=== PATIENT | female | born 1975 | race Caucasian/White ===

== ENCOUNTER 2017-05-30 00:58 | Emergency (ER) | payer OTHER ==
[2017-05-30 01:36] LABS: #Basophils 0.1 thou/uL (0.0-0.2); #Eosinphils 0.2 thou/uL (0.0-0.7); #Lymphocytes 2.5 thou/uL (1.20-3.40); #Monocytes 0.8 thou/uL (0.11-0.59); #Neutrophils 3.7 thou/uL (1.40-6.50); %Basophils 0.9 % (0.0-1.0); %Eosinophils 2.8 % (0.0-10.0); %Lymphocytes 34.4 % (21.0-51.0); %Monocytes 11.5 % (0.0-10.0); Hematocrit 44.4 % (36.0-47.0); Mean Platelet Volume 6.6 fL (7.4-10.4); Red Blood Cell (RBC) Count 4.94 mill/uL (4.20-5.40); White Blood Cell (WBC) Count 7.3 thou/uL (4.8-10.8)
[2017-05-30 01:50] LABS: PTT 30.4 SEC (22.9-36.1); Prothrombin Time 12.9 SEC (12.0-14.7)
[2017-05-30 01:54] LABS: ALT (SGPT) 27 U/L (8-55); AST (SGOT) 34 U/L (5-34); Alkaline Phosphatase 44 U/L (40-150); Anion Gap 13 mmol/L (10-20); BUN (Urea Nitrogen) 12 mg/dL (7.0-18.7); Bilirubin, Total 0.5 mg/dL (0.2-1.2); CK (CPK) 226 U/L (29-168); Calc. Creatinine Clearance 0 mL/min (70-130); Calcium 9.2 mg/dL (7.8-10.44); Carbon Dioxide 23 mmol/L (22-29); Chloride 106 mmol/L (98-107); Estimated GFR-MDRD 82; Globulin 2.9 g/dL (2.4-3.5); Lipase 42 U/L (8-78); Protein, Total 6.8 g/dL (6.0-8.3)
[2017-05-30 01:56] LABS: Troponin I Less than 0.010 ng/mL (< 0.028)
--- NOTE | 2017-05-30 13:37 | CT ---
PRELIMINARY REPORT/[facility]/EMERGENCY AFTER HOURS PROCEDURE: EXAM: CT Angiography Chest With Intravenous Contrast CLINICAL HISTORY: sudden onset of sharp back pain that woke her from her sleep TECHNIQUE: Axial computed tomographic angiography images of the chest with intravenous contrast using pulmonary embolism protocol. CONTRAST: 66 mL of isovue 370 administered intravenously. COMPARISON: No relevant prior studies available. FINDINGS: Pulmonary arteries: No acute findings. No pulmonary embolism. Aorta: No acute findings. No thoracic aortic aneurysm. Lungs: 6 mm indeterminate round noncalcified nodule, medial left lower lobe, paraspinal location. Mild reticular densities lingula, likely reflecting atelectasis vs fibrosis. No focal consolidation. Pleural space: No acute findings. No significant effusion. No pneumothorax. Heart: No acute findings. No cardiomegaly. No significant pericardial effusion. No evidence of RV dys function. Bones/joints: No acute fracture. No dislocation. Soft tissues: No acute findings. Lymph nodes: No acute findings. No enlarged lymph nodes. IMPRESSION: No pulmonary embolism. No aneurysm. Mild reticular densities lingula, likely reflecting atelectasis vs fibrosis. 6 mm indeterminate round noncalcified nodule, left lower lobe. For low-risk patients recommend follow-up chest CT at 6-12 months. If unchanged consider an additiona l follow-up CT at 18-24 months. For high-risk patients (smoking history or other known risk factors) initial follow-up chest CT at 6-12 months and if unchanged, 18-24 months. Thank you for allowing us to participate in the care of your patient. Dictated and Authenticated by: Dee France MD 05/30/2017 2:37 AM Central Time ([place] & [place]) FINAL REPORT EMERGENCY AFTER HOURS CT ANGIOGRAM THORAX WITH IV CONTRAST AND 3D RECONSTRUCTIONS: Date: 05/30/17 HISTORY: Sudden onset of sharp back pain that awakened patient from sleep. Patient states pain is exacerbated by inspiration and deep breathing. COMPARISON: None available. IMPRESSION: 1. No CT evidence of pulmonary embolus. 2. Thoracic aorta is normal in caliber without evidence of an aortic dissection. 3. Pleural based nodular density medial left lower lobe which measures 6-7 mm. This could be related to an area of focal pleural thickening, but follow-up CT thorax in 6-12 months is recommended. 4. Atelectasis in the region of the lingula. Findings are in agreement with the preliminary report by Harini. POS: LEEANNA
[2017-05-30] MEDS ORDERED: ISOVUE-370 76%-LOCM 1 ML ONE (16:44)
== END 2017-05-30 03:08 | disposition home or self-care (01) ==
LOC: ERS 00:58
DX: F41.1 Generalized anxiety disorder (principal); R91.1 Solitary pulmonary nodule; J45.909 Unspecified asthma, uncomplicated; Z79.899 Other long term (current) drug therapy
CPT/HCPCS: 71275; 80053; 82553; 83690; 84484; 84703; 85025; 85610; 85730; 93005; 96360

== ENCOUNTER 2018-07-15 13:14 | Outpatient (CLI) | payer OTHER | END 2018-07-15 13:15 | disposition home or self-care (01) | LOC: BICMAMMO 13:14 | PROVIDERS: ATTEND Nurse Practitioner Family | DX: N64.4 Mastodynia (principal); Z80.3 Family history of malignant neoplasm of breast | CPT/HCPCS: 77066; G0279 ==

== ENCOUNTER 2018-09-09 08:54 | Outpatient (CLI) | payer OTHER ==
--- NOTE | 2018-09-09 09:46 | ULT ---
ULTRASOUND PELVIS TRANSABDOMINAL: HISTORY: Left lower quadrant pain. COMPARISON: None. FINDINGS: The uterus measures 8.2 x 4.5 x 5.5 cm. Endometrial thickness is 7 mm. The right ovary is 3 x 2.8 x 2.2 cm. The left ovary is 2.9 x 2.2 x 1.7 cm. No significant free fluid in the pelvis. Transvaginal approach was not performed. Adequate flow to both ovaries. IMPRESSION: Normal exam. POS: LEEANNA
== END 2018-09-09 08:55 | disposition home or self-care (01) ==
LOC: ULT 08:54
PROVIDERS: ATTEND Nurse Practitioner Family
DX: R10.32 Left lower quadrant pain (principal)
CPT/HCPCS: 76856; 93976

== ENCOUNTER 2019-01-12 11:01 | Outpatient (CLI) | payer OTHER ==
--- NOTE | 2019-01-12 11:33 | RAD ---
EXAM: Chest PA and lateral: HISTORY: Cough. COMPARISON: None FINDINGS: Heart: Normal cardiac silhouette Aorta: Unremarkable Pulmonary vessels: Normal Costophrenic angles: Costophrenic angles are clear. Lungs: Right lower lobe infiltrate. Pneumothorax: No pneumothorax Osseous structures: No osseous abnormalities IMPRESSION: Right lower lobe infiltrate. Continued surveillance to ensure resolution.
== END 2019-01-12 11:02 | disposition home or self-care (01) ==
LOC: SCSRAD 11:01
PROVIDERS: ATTEND Nurse Practitioner Family
DX: J45.41 Moderate persistent asthma with (acute) exacerbation (principal); R91.8 Other nonspecific abnormal finding of lung field
CPT/HCPCS: 71046

== ENCOUNTER 2019-04-10 06:50 | Outpatient (CLI) | payer OTHER ==
[2019-04-10 12:46] LABS: BHCG - Serum Negative (NEGATIVE); Pregs Control Background? CLEAR/WHITE (CLR/WHITE); Pregs Control Bar Appear? YES (CONTROL BAR)
== END 2019-04-10 06:51 | disposition home or self-care (01) ==
LOC: LABBT 06:50
PROVIDERS: ATTEND Student in an Organized Health Care Education/Training Program
DX: Z01.812 Encounter for preprocedural laboratory examination (principal); N92.0 Excessive and frequent menstruation with regular cycle
CPT/HCPCS: 84703

== ENCOUNTER 2019-04-13 07:45 | Day surgery (SDC) | payer OTHER ==
[2019-04-10 11:32] VITALS: BMI 26.5
[2019-04-10 12:35] LABS: Hemoglobin 15.8 g/dL (12.0-16.0); Mean Corpuscular HGB CONC 34.2 g/dL (32.0-36.0); Mean Corpuscular Hemoglobin 30.9 pg (27.0-31.0); Mean Corpuscular Volume 90.5 fL (78.0-98.0); Mean Platelet Volume 6.3 fL (7.4-10.4); Platelet Count 269 thou/uL (130-400); White Blood Cell (WBC) Count 7.5 thou/uL (4.8-10.8)
[2019-04-13] MEDS ORDERED: Gabapentin 300 MG CAP ONE (08:25)
[2019-04-13] MEDS ORDERED: CeleCOXIB 100 MG CAP ONE (08:25)
[2019-04-13] MEDS ORDERED: Famotidine/PF 20 mg/2ml Vial ONE (08:25)
[2019-04-13] MEDS ORDERED: Scopolamine 1.5 mg/72 hour Patch ONE (09:25)
[2019-04-13] MEDS ORDERED: Midazolam HCl 2 mg/2 ml Vial ONE ×2 (09:25→10:01)
[2019-04-13 09:34] LABS: BHCG - Serum Negative (NEGATIVE); Pregs Control Background? CLEAR/WHITE (CLR/WHITE); Pregs Control Bar Appear? YES (CONTROL BAR)
[2019-04-13] MEDS ORDERED: Lidocaine 2% Jelly 5 ML TUBE ONE (10:01)
[2019-04-13] MEDS ORDERED: Fentanyl 100 MCG/2 ML VIAL ONE ×2 (10:01→12:56)
[2019-04-13] MEDS ORDERED: HYDROmorphone 0.5 MG/0.5 ML SYRINGE ONE (10:01)
[2019-04-13] MEDS ORDERED: Bupivacaine HCl 0.5%/Epinephrine 1:200,000/PF 30 ml Vial ONE (10:02)
[2019-04-13] MEDS ORDERED: Ondansetron HCl/PF 4 MG/2 ML Vial IVP PRN (12:02)
[2019-04-13] MEDS ORDERED: Promethazine HCl 25 MG/ML VIAL SLOW IVP PRN (12:02)
[2019-04-13] MEDS ORDERED: Promethazine HCl 25 MG/ML VIAL IM PRN ×2 (12:02→12:16)
[2019-04-13] MEDS ORDERED: Simethicone Chewable 80 MG TAB PO PRN (12:16)
[2019-04-13] MEDS ORDERED: Morphine 4 MG/ML VIAL SLOW IVP PRN (12:16)
[2019-04-13] MEDS ORDERED: HYDROcodone/Acetaminophen 5/325 mg Tablet PO PRN ×2 (12:16)
[2019-04-13] MEDS ORDERED: Bisacodyl 10 MG SUPP PR PRN (12:16)
[2019-04-13] MEDS ORDERED: Ondansetron PF 4 MG/2 ML Vial IVP PRN (12:16)
[2019-04-13] MEDS ORDERED: Zolpidem Tartrate 5 MG TAB PO PRN (12:16)
[2019-04-13] MEDS ORDERED: diphenhydrAMINE 25 MG CAP PO PRN (12:16)
[2019-04-13] MEDS ORDERED: PROVENTIL INHALER 6.7 G (200 INHALATIONS) INH PRN (12:18)
[2019-04-13] MEDS ORDERED: Lidocaine 1% PF 5 ML VIAL ONE (12:47)
[2019-04-13] MEDS ORDERED: PROPOFOL 200 MG/20 ML VIAL ONE (12:47)
[2019-04-13] MEDS ORDERED: Rocuronium Bromide 10 MG/ML (10ML VIAL) ONE (12:47)
[2019-04-13] MEDS ORDERED: Dexamethasone 20 MG/5 ML VIAL ONE (12:47)
[2019-04-13] MEDS ORDERED: Ondansetron PF 4 MG/2 ML Vial ONE (12:47)
[2019-04-13] MEDS ORDERED: ePHEDrine 50 MG/ML VIAL ONE (12:47)
[2019-04-13] MEDS ORDERED: Glycopyrrolate 0.2 MG/ML 5 ML SYRINGE ONE (12:47)
[2019-04-13] MEDS: Mometasone/Formoterol 120 PUFF INHALER INH SCH (19:03)
[2019-04-13] MEDS: Sodium Chloride 0.9% 1,000 ML IV SCH ×2 (19:33→20:54)
[2019-04-13] MEDS: Ketorolac Tromethamine 30 MG/ML VIAL IVP SCH (20:46)
[2019-04-14] MEDS: Ketorolac Tromethamine 30 MG/ML VIAL IVP SCH (00:19)
[2019-04-14] MEDS: Sodium Chloride 0.9% 1,000 ML IV SCH (04:17)
[2019-04-14] MEDS ORDERED: Ibuprofen 800 MG TAB PO SCH (06:00)
[2019-04-14 06:37] LABS: Mean Corpuscular HGB CONC 34.3 g/dL (32.0-36.0); Mean Corpuscular Hemoglobin 30.7 pg (27.0-31.0); Mean Corpuscular Volume 89.5 fL (78.0-98.0); Mean Platelet Volume 6.5 fL (7.4-10.4); Platelet Count 246 thou/uL (130-400); RBC Distribution Width 11.8 % (11.5-14.5); Red Blood Cell (RBC) Count 4.57 mill/uL (4.20-5.40); White Blood Cell (WBC) Count 15.3 thou/uL (4.8-10.8)
[2019-04-14] MEDS: Mometasone/Formoterol 120 PUFF INHALER INH SCH (07:27)
[2019-04-14 08:18] VITALS: BP 110/61; TEMP 98.6
--- NOTE | 2019-04-15 10:43 | OP ---
DATE OF PROCEDURE: 04/13/2019 PREOPERATIVE DIAGNOSIS: Abnormal uterine bleeding. POSTOPERATIVE DIAGNOSIS: Abnormal uterine bleeding. PROCEDURE PERFORMED: Robotic-assisted total laparoscopic hysterectomy with bilateral salpingectomy. ANESTHESIA: General endotracheal. CAFETERIA OR LUNCHROOM CHECKER SURGEON: Tatiana Perez PA-C ESTIMATED BLOOD LOSS: 50 mL. INTRAVENOUS FLUIDS: 1500 mL crystalloid. URINE OUTPUT: 240 mL clear urine. COMPLICATIONS: None. DRAINS: Pablo catheter. PATHOLOGY: Uterus, cervix, bilateral fallopian tubes. FINDINGS: On exam under anesthesia, a mobile 9-week size uterus. Cervix is normal-appearing. The vagina is normal. The uterus was normal as well as bilateral fallopian tubes and ovaries. There were small follicular cyst on the right ovary that had clear fluid on aspiration. DESCRIPTION OF PROCEDURE: The patient was taken to the operating room, where general anesthesia was obtained without difficulty. The patient was prepped and draped in a sterile fashion in a dorsal lithotomy position. A Pablo catheter was placed in the bladder. A speculum was placed in the vagina. The anterior lip of the cervix was grasped with single-tooth tenaculum. The uterus then sounded to 9 cm, and the TAIWO manipulator was assembled with an 8 cm tip and a 4 cm colpotomizer ring. The TAIWO manipulator was inserted into the uterine fundus and colpotomizer ring was advanced to fit snugly around the cervix. The instruments were removed out of the vagina. Legs were placed in low lithotomy. Attention was turned to the abdomen. 0.5% Marcaine with epinephrine was infiltrated into the umbilicus and a 12 mm skin incision was made. The Veress needle was passed into the abdomen noting an opening pressure of 4 mmHg, and pneumoperitoneum was obtained without difficulty. The 12 mm trocar was then advanced into the abdomen and confirmed placement with robotic camera. Steep Trendelenburg was obtained. The right and left lower quadrant 8 mm robotic trocars were placed under direct visualization after infiltrating with 0.5% Marcaine with epinephrine and making skin incision. A right upper quadrant 11 mm surgery assistant port was also placed under direct visualization after infiltrating with anesthetic and making skin incision. The robot was then docked. The right robotic arm contained monopolar scissors. Left robotic arm contained a fenestrated bipolar. The surgeon console then took control. The right fallopian tube was grasped and elevated. The mesosalpinx was sequentially cauterized and incised with the fenestrated and scissors respectively until the medial portion of the fallopian tube was met. Then, it was clamped across, cauterized, transected, and then removed out of the abdomen. The utero-ovarian was cauterized multiple times and transected, and incision was taken down to the round ligament with the scissors. The round ligament was cauterized with the fenestrated and incised with the scissors and the medial portion of the posterior leaf of the broad ligament was dropped down, making an incision with the scissors. The anterior leaf of the broad ligament was dropped down to the level of the bladder flap with the scissors, and the retroperitoneum was then dissected off the uterine pedicles with the scissors as well as blunt dissection with the fenestrated and pushing and spreading. The bladder flap was then created by tenting up with the fenestrated and incised on the vesicouterine peritoneum with the scissors. The adventitial fibers of the bladder flap were then dissected down incising with the scissors while tenting up on the peritoneum with the fenestrated. Attention was turned to the left side, where the left fallopian tube was grasped and elevated. The mesosalpinx was sequentially clamped, cauterized, and transected from lateral to medial until the medial portion was met, and then, the fallopian tube was then clamped across, cauterized, transected, removed out of the abdomen. The utero-ovarian was cauterized multiple times and incised with the scissors. The round ligament was cauterized and incised in the medial portion. The anterior leaf of the broad ligament was dropped down to the level of the contralateral side incision. The posterior leaves of the broad ligament were also dropped down after sharply anteverting the uterus down to the level of the uterosacral. The ureters were identified bilaterally and the retroperitoneum at this time and to ensure no inadvertent injury. They were under direct visualization during the case. The uterine pedicles were skeletonized at this time as well, mostly bluntly pushing and spreading with the fenestrated and then cauterizing multiple supporting vessels to the uterine pedicle. After adequate skeletonization, the pubocervical fascia was scored with the scissors and bluntly dissected down below the level of the colpotomizer ring with the back end of the scissors. The uterine vessels were cauterized right just above the level of the colpotomizer ring multiple times bilaterally and incised. Hemostasis was achieved with the fenestrated. The colpotomy was then performed circumferentially around the colpotomizer ring, and the uterus was then placed into the vagina. The vaginal cuff was irrigated and hemostasis was achieved with the fenestrated. The scissors were traded out with a needle racing driver and the vaginal cuff was closed with a 2-0 Stratafix suture in a running fashion incorporating vaginal mucosa and posterior peritoneum in each bite. This was run back for an additional layer with the same suture. The needle was then cut and removed out of the abdomen. During the closure, the suture did break, and therefore, an additional STRATAFIX suture was used to complete the closure and both needles were removed out of the abdomen. Following closure, the vaginal cuff was irrigated copiously and suctioned as well as the additional pedicles. Hemostasis was noted to be excellent. Low pressure check was performed and hemostasis was noted. The bladder was also backfilled and no inadvertent injury to the bladder was identified. All instruments were removed out of the abdomen. Pneumoperitoneum was released, and the robot was undocked. The fascia of the umbilical port was closed with a 0 Vicryl in a wqqash-oh-exnvi fashion. The skin was closed with a 4-0 Monocryl in a subcuticular fashion. Dermabond was applied. The vaginal cuff was checked and noted to be hemostatic. All instruments removed out of the vagina. The patient tolerated the procedure well. Sponge, lap, and needle counts were correct x2. The patient was taken to recovery room in stable condition. The patient received Ancef 2 g prior to the procedure. Job ID: [id number]
== END 2019-04-14 11:20 | disposition home or self-care (01) ==
LOC: SDC 07:45 → 3SE 13:34 → SDC 04-14 11:20
PROVIDERS: ATTEND Student in an Organized Health Care Education/Training Program
PROC: 0UT74ZZ Resection of Bilateral Fallopian Tubes, Percutaneous Endoscopic Approach (ICD-10-PCS; principal; 2019-04-14)
PROC: 0UT94ZZ Resection of Uterus, Percutaneous Endoscopic Approach (ICD-10-PCS; principal; 2019-04-14)
DX: N93.9 Abnormal uterine and vaginal bleeding, unspecified (principal); N92.0 Excessive and frequent menstruation with regular cycle; N72 Inflammatory disease of cervix uteri; N83.01 Follicular cyst of right ovary; Z91.018 Allergy to other foods
CPT/HCPCS: 36415; 84703; 85027; 86850; 86900; 86901; 88307; J0131; J0670; J0690; J1100; J1170; J1885; J2001; J2250; J2405; J2704; J3010; J3490; S0028

== ENCOUNTER 2019-04-22 17:46 | Observation (INO) | payer OTHER ==
[~2019-04-22 17:46] MED LIST: Iopamidol 370 76% 100 ML VIAL ONE
[2019-04-22] MEDS ORDERED: Ondansetron PF 4 MG/2 ML Vial ONE (18:36)
[2019-04-22] MEDS ORDERED: Morphine 4 MG/ML VIAL ONE ×2 (18:36→21:55)
[2019-04-22 20:04] LABS: #Eosinphils 0.2 thou/uL (0.0-0.7); #Lymphocytes 0.4 thou/uL (1.20-3.40); #Monocytes 0.5 thou/uL (0.11-0.59); #Neutrophils 7.2 thou/uL (1.40-6.50); %Basophils 0.1 % (0.0-1.0); %Eosinophils 2.4 % (0.0-10.0); %Lymphocytes 4.6 % (21.0-51.0); %Monocytes 5.6 % (0.0-10.0); %Neutrophils 87.2 % (42.0-75.0); Hemoglobin 15.7 g/dL (12.0-16.0); Mean Corpuscular HGB CONC 35.2 g/dL (32.0-36.0); Mean Corpuscular Hemoglobin 30.9 pg (27.0-31.0); Mean Corpuscular Volume 87.8 fL (78.0-98.0); Mean Platelet Volume 6.1 fL (7.4-10.4); Platelet Count 212 thou/uL (130-400); RBC Distribution Width 11.5 % (11.5-14.5); Red Blood Cell (RBC) Count 5.07 mill/uL (4.20-5.40); White Blood Cell (WBC) Count 8.2 thou/uL (4.8-10.8)
[2019-04-22 20:08] LABS: Bilirubin Negative (Negative); Blood, Urine Negative (Negative); Clarity Clear (Clear); Glucose, Urine (Dipstick) Normal (Negative); Leukocyte Negative Leu/uL (Negative); Nitrite Negative (Negative); Protein, Urine (Dipstick) Negative (Neg-Trace); Urobilinogen Normal mg/dL (Less than 2)
[2019-04-22 20:20] LABS: ALT (SGPT) 17 U/L (8-55); AST (SGOT) 19 U/L (5-34); Albumin 4.1 g/dL (3.5-5.0); Alkaline Phosphatase 56 U/L (40-110); Anion Gap 14 mmol/L (10-20); BUN (Urea Nitrogen) 12 mg/dL (7.0-18.7); Bilirubin, Total 0.9 mg/dL (0.2-1.2); Calc. Creatinine Clearance 0 mL/min (70-130); Carbon Dioxide 25 mmol/L (22-29); Chloride 104 mmol/L (98-107); Estimated GFR-MDRD 81; Globulin 2.7 g/dL (2.4-3.5); Glucose 115 mg/dL (70-105); Protein, Total 6.8 g/dL (6.0-8.3); Sodium 139 mmol/L (136-145)
--- NOTE | 2019-04-22 20:38 | CT ---
EXAM: Abdomen and pelvic CT scan with contrast: HISTORY: Epigastric pain. Recent surgery. COMPARISON: None FINDINGS: Minimal volume loss is seen at the lung bases Liver: Unremarkable. Gallbladder: There is moderate distention of the gallbladder Pancreas: No focal pancreatic lesion. Spleen: Unremarkable. Adrenal glands: Unremarkable. Kidneys: No renal calculus or acute obstruction. Small parenchymal hypodensities of each kidney ar e too small to definitively characterize Bowel: Limited evaluation of bowel without enteric contrast. There is mild generalized hyperdensity o f bowel wall, which could be on the basis of hyperemia related to enteritis. There is mild fat stranding seen intra-abdominally as well as mild ascites. Urinary Bladder: The urinary bladder is unremarkable. Adenopathy: No adenopathy within the abdomen or pelvis. Subcutaneous air density of the ventral body wall is present. This is adjacent a presumed port site g iven patient's history of recent surgery. No disseminated free air. Osseous structures: No acute osseous abnormalities. IMPRESSION: Findings which may relate to enteritis, as discussed above. There is associated mild ascites. Correla te clinically. Moderate distention of gallbladder. Additional details are described above. Transcribed Date/Time: 04/22/2019 8:51 PM
[2019-04-22] MEDS ORDERED: Piperacillin/Tazobactam 4.5 GM VIAL ONE (22:03)
--- NOTE | 2019-04-22 22:47 | ULT ---
Gallbladder ultrasound: Multiple grayscale images of right upper quadrant obtained according to protocol. INDICATION: Pain FINDINGS: Liver: Normal Gallbladder: Moderate distention Gallbladder wall: Normal. Mcallister's Sign: Negative Common bile duct is mildly dilated, 6 mm Ascites: None. IMPRESSION: Moderate distention of the gallbladder, without evidence of acute cholecystitis, or shadowing choleli thiasis. Mild biliary ductal dilatation. Correlate with biliary laboratory values. Additional details as discussed above.
[2019-04-22] MEDS ORDERED: Ondansetron PF 4 MG/2 ML Vial IVP PRN (23:21)
[2019-04-23] MEDS ORDERED: Morphine 4 MG/ML VIAL ONE (00:23)
--- NOTE | 2019-04-23 00:45 | PDOC.EVN ---
Event Note - Event Note Event Note: [id number] HP
[2019-04-23 01:25] VITALS: BMI 26.5
[2019-04-23] MEDS: Sodium Chloride 0.9% 1,000 ML IV SCH ×3 (01:43→20:23)
[2019-04-23] MEDS ORDERED: Ketorolac Tromethamine 30 MG/ML VIAL IVP SCH (01:45)
[2019-04-23] MEDS: Piperacillin/Tazobactam 3.375 GM in Sodium Chloride 0.9% 100 ML IVPB SCH ×4 (04:31→20:09)
[2019-04-23 06:50] LABS: #Eosinphils 0.4 thou/uL (0.0-0.7); #Lymphocytes 0.5 thou/uL (1.20-3.40); #Monocytes 0.8 thou/uL (0.11-0.59); #Neutrophils 6.5 thou/uL (1.40-6.50); %Basophils 0.3 % (0.0-1.0); %Eosinophils 5.2 % (0.0-10.0); %Lymphocytes 5.6 % (21.0-51.0); %Monocytes 9.4 % (0.0-10.0); %Neutrophils 79.5 % (42.0-75.0); Hemoglobin 14.5 g/dL (12.0-16.0); Mean Corpuscular HGB CONC 33.6 g/dL (32.0-36.0); Mean Corpuscular Hemoglobin 30.1 pg (27.0-31.0); Mean Corpuscular Volume 89.4 fL (78.0-98.0); Mean Platelet Volume 6.1 fL (7.4-10.4); Platelet Count 172 thou/uL (130-400); RBC Distribution Width 11.6 % (11.5-14.5); Red Blood Cell (RBC) Count 4.83 mill/uL (4.20-5.40); White Blood Cell (WBC) Count 8.1 thou/uL (4.8-10.8)
--- NOTE | 2019-04-23 07:16 | HP ---
CHIEF COMPLAINT: Abdominal pain. HISTORY OF PRESENT ILLNESS: Ms. Jj is a 43-year-old female, with past medical history of bronchial asthma, presents to the emergency room with abdominal pain, nausea, vomiting, and diarrhea that started earlier this morning. The patient had a hysterectomy a week ago. The patient also reports subjective fever. Workup in the emergency room including CT of the abdomen showed findings related to enteritis. Right upper quadrant ultrasound showed distended gallbladder without evidence of acute cholecystitis or shadowing cholelithiasis. Electrolytes are unremarkable; bilirubin, ALT, AST, alkaline phosphatase are normal. The patient is being admitted to the hospital for further management. The patient had a temperature of 100.5 in the ED. The patient was tachycardic with a heart rate of 117. The patient is being admitted to the hospital for further management. PAST MEDICAL HISTORY: Bronchial asthma. PAST SURGICAL HISTORY: Hysterectomy. FAMILY HISTORY: Reviewed and noncontributory. HOME MEDICATIONS: Please see home medication reconciliation form for updated medications. ALLERGIES: NO KNOWN ALLERGIES. REVIEW OF SYSTEMS: Review of 14 systems negative except what is mentioned in History of Present Illness. PHYSICAL EXAMINATION: GENERAL: The patient is awake, alert, in moderate distress. VITAL SIGNS: Blood pressure is 100/74, pulse is 115, respiratory rate is 23, temperature is 102.1 maximum. HEAD AND NECK: Normocephalic and atraumatic. NECK: Supple. No JVD. CHEST: Fair bilateral air entry. HEART: S1, S2. Regular. ABDOMEN: Soft with mid abdominal and epigastric tenderness. NEUROLOGIC: Awake, alert, oriented x3. PSYCH: Normal mood. EXTREMITIES: No clubbing, no cyanosis. LABORATORY DATA: As mentioned above in History of Present Illness. The right upper quadrant ultrasound as mentioned above in History of Present Illness. CT abdomen and pelvis as mentioned above in History of Present Illness. ASSESSMENT: 1. Sepsis. 2. Acute enteritis. 3. Normal right upper quadrant ultrasound with distended gallbladder and mild biliary duct dilatation with normal LFTs. 4. Asthma. PLAN: 1. Admit. 2. Septic workup done in the ED. 3. Continue with IV antibiotic. 4. IV fluids. 5. Keep n.p.o. for now. 6. Reassess in the a.m. 7. Reconcile home medications. 8. DVT prophylaxis, early ambulation. 9. Expected length of stay at least 1 midnight if the patient is stable, and able to tolerate p.o. Job ID: [id number]
[2019-04-23 07:24] LABS: ALT (SGPT) 14 U/L (8-55); AST (SGOT) 21 U/L (5-34); Albumin 3.1 g/dL (3.5-5.0); Alkaline Phosphatase 41 U/L (40-110); Anion Gap 12 mmol/L (10-20); BUN (Urea Nitrogen) 10 mg/dL (7.0-18.7); Bilirubin, Total 1.1 mg/dL (0.2-1.2); Calc. Creatinine Clearance 109 mL/min (70-130); Calcium 7.7 mg/dL (7.8-10.44); Carbon Dioxide 21 mmol/L (22-29); Chloride 104 mmol/L (98-107); Estimated GFR-MDRD 89; Globulin 2.3 g/dL (2.4-3.5); Glucose 107 mg/dL (70-105); Potassium 3.5 mmol/L (3.5-5.1); Protein, Total 5.4 g/dL (6.0-8.3); Sodium 133 mmol/L (136-145)
[2019-04-23] MEDS: Morphine 4 MG/ML VIAL SLOW IVP PRN ×2 (07:46→20:29)
[2019-04-23] MEDS: Famotidine/PF 20 mg/2ml Vial SLOW IVP SCH ×2 (07:46→20:09)
[2019-04-23] MEDS: Acetaminophen 325 MG TAB PO PRN ×3 (07:46→20:09)
[2019-04-23] MEDS ORDERED: PROVENTIL INHALER 6.7 G (200 INHALATIONS) INH PRN (08:26)
[2019-04-23] MEDS ORDERED: Non-Formulary Item 1 EACH (Fluticasone/Salmeterol [Advair Diskus 250/50] 1 EACH) IH PRN (08:26)
--- NOTE | 2019-04-23 10:01 | PRG ---
DATE OF SERVICE: 04/23/2019 SUBJECTIVE: The patient is seen and examined at the bedside. She feels significantly better. She does not have any nausea or vomiting anymore. She still has some abdominal cramps, but they have improved. OBJECTIVE: VITAL SIGNS: Blood pressure is 109/74, temperature is 101.2, pulse 116, respiratory rate is 19, O2 saturation is 94% on room air. HEENT: Head is atraumatic and normocephalic. Eyes are PERRLA. Sclerae are nonicteric. Oral mucosa is somewhat dry. NECK: Supple. LUNGS: Clear. HEART: S1 and S2, normal. Tachycardic. No S3. No S4. ABDOMEN: Soft. Somewhat tender in the epigastric area. No guarding. No masses. EXTREMITIES: No clubbing, cyanosis, or edema. NEUROLOGIC: She is alert and oriented x4. There are no any motor or sensory deficits present. LABORATORY DATA: Showed white count of 8.1, hemoglobin 14.5, hematocrit 43.2, platelet count is 172,000. Sodium of 133, potassium 3.5, chloride 104, CO2 of 21, BUN 10, creatinine 0.72, glucose 107, total protein 5.4, albumin 3.1. Microbiology, two blood cultures are negative. IMPRESSION: 1. Fever, most likely related to acute enteritis. 2. Acute enteritis. 3. History of asthma. PLAN: To continue her IV antibiotics. Continue IV fluids. Start her on clear liquids. Start her on inhalations for her asthma, and use Tylenol p.r.n. for the fever. Job ID: [id number]
[2019-04-23] MEDS ORDERED: traMADol HCl 50 MG TAB PO PRN (15:59)
[2019-04-24] MEDS: Sodium Chloride 0.9% 1,000 ML IV SCH (02:31)
[2019-04-24] MEDS: Piperacillin/Tazobactam 3.375 GM in Sodium Chloride 0.9% 100 ML IVPB SCH (03:39)
[2019-04-24] MEDS ORDERED: Ibuprofen 200 MG TAB PO SCH ×2 (05:00→12:45)
[2019-04-24] MEDS ORDERED: Cipro 250 MG TAB PO SCH (09:00)
[2019-04-24] MEDS: Famotidine/PF 20 mg/2ml Vial SLOW IVP SCH ×2 (09:08→19:17)
[2019-04-24] MEDS ORDERED: Ciprofloxacin 500 MG TAB PO SCH (09:15)
[2019-04-24] MEDS: metroNIDAZOLE 500 MG in Premix Bag 1 BAG IVPB SCH ×3 (09:22→18:08)
--- NOTE | 2019-04-24 09:55 | PRG ---
DATE OF SERVICE: 04/24/2019 SUBJECTIVE: The patient is seen and examined at the bedside. She feels better. Her abdominal cramping has gone. She does not feel like eating yet, though she has watery diarrhea, 3 bowel movements, all of them watery. OBJECTIVE: VITAL SIGNS: Blood pressure is 128/77, pulse is 76, respiratory rate is 18, O2 saturation is 96% on room air. Her temperature is 97.1. HEENT: Her head is atraumatic and normocephalic. Eyes are PERRLA. Sclerae are nonicteric. Oral mucosa is moist. NECK: Supple. LUNGS: Clear. HEART: S1 and S2 normal. ABDOMEN: Soft and nontender. Bowel sounds are present. No organomegaly. EXTREMITIES: No clubbing, cyanosis, or edema. NEUROLOGIC: Intact. LABORATORY DATA: None today. IMPRESSION: Acute enteritis. We will check her stool. We will switch her from Zosyn to Cipro p.o. and Flagyl IV piggyback every 8 hours. We will discontinue her IV fluids. We will increase ambulation and check her stool for Escherichia coli and Campylobacter, and we will advance her diet as tolerated. Job ID: [id number]
[2019-04-24] MEDS ORDERED: Metoclopramide HCl 10 MG/2 ML VIAL IVP SCH (16:15)
[2019-04-24] MEDS ORDERED: Dihydroergotamine Mesylate 1 MG/ML AMP SLOW IVP SCH (16:15)
[2019-04-24] MEDS: Mometasone/Formoterol 120 PUFF INHALER INH SCH (18:24)
[2019-04-24] MEDS ORDERED: metroNIDAZOLE 500 MG TAB PO SCH (19:15)
[2019-04-24] MEDS ORDERED: SUMAtriptan Succinate 50 MG TAB PO SCH (19:15)
[2019-04-24] MEDS: Ciprofloxacin 500 MG TAB PO SCH (20:45)
[2019-04-24] MEDS ORDERED: SUMAtriptan Succinate 50 MG TAB PO PRN (21:00)
[2019-04-25] MEDS: Ciprofloxacin 500 MG TAB PO SCH (05:48)
[2019-04-25] MEDS: Mometasone/Formoterol 120 PUFF INHALER INH SCH (06:25)
[2019-04-25] MEDS ORDERED: metroNIDAZOLE 500 MG TAB PO SCH (09:00)
[2019-04-25] MEDS: Famotidine/PF 20 mg/2ml Vial SLOW IVP SCH (09:13)
[2019-04-25 10:50] VITALS: BP 119/83; TEMP 97.9
--- NOTE | 2019-04-25 14:42 | EKG ---
Test Reason : Blood Pressure : / mmHG Vent. Rate : 099 BPM Atrial Rate : 099 BPM P-R Int : 144 ms QRS Dur : 094 ms QT Int : 364 ms P-R-T Axes : 064 053 050 degrees QTc Int : 467 ms Normal sinus rhythm Possible Left atrial enlargement Borderline ECG Confirmed by VÍCTOR SLATER DO ([id number]), order editor ABDOULAYE ROMEO ([id number]) on 04/25/2019 2:41:38 PM Referred By: Confirmed By:VÍCTOR SLATER DO
--- NOTE | 2019-04-27 13:52 | DIS ---
DATE OF ADMISSION: 04/23/2019 DATE OF DISCHARGE: 04/25/2019 FINAL DIAGNOSIS: Acute enteritis, improved. HOSPITAL COURSE: The patient was a 43-year-old female with past medical history of bronchial asthma, who presented to the emergency room with abdominal pain, nausea, vomiting, and diarrhea x1 day. She had hysterectomy done a week ago. Workup in the emergency room showed normal white count, normal hemoglobin and hematocrit, normal platelet level, normal chemistry. Lipase 6, glucose 115. Urinalysis, 100 of ketones, otherwise within normal limits. Ultrasound of the abdomen was done which showed mildly biliary ductal dilatation and moderate distention of the gallbladder without evidence of acute cholecystitis or shadowing cholelithiasis. Also, CT of the abdomen and pelvis was done and it showed most likely enteritis with mild ascites. The patient's temperature went up to 101.2 two days ago, then it went down to normal range. Her abdominal pain resolved and she is able to tolerate food without any problems. She still has some watery diarrhea. Her white count is normal. Clinically she looks good. Her blood pressure is 114/76, pulse is 73, temperature is 98.1, respirations 17, O2 saturation is 98% on room air. She is seen and examined before she is discharged home. Her blood cultures came back negative. Urine culture did not show any significant growth. I think this is just contamination. Her stool culture came back negative for shiga toxins and gram negative pathogens. Campylobacter assay came back negative. Stool lactoferrin came back positive. So the patient is discharged home in good condition. She is going to stay on Cipro 500 mg twice a day for 7 days and metronidazole 500 mg 3 times a day for 7 days. She will continue her p.r.n. inhalers for her asthma. FOLLOWUP: She will contact her primary care physician for the followup in 1 week and she will discuss the possibility of using sumatriptan since she has tried this medicine for her headache during this hospitalization and it worked pretty good. She will use Tylenol for the pain. Job ID: [id number]
== END 2019-04-25 11:06 | disposition home or self-care (01) ==
LOC: ERS 17:46 → T4-B 04-23 01:13
PROVIDERS: ADMIT Internal Medicine; ATTEND Internal Medicine
DX: K52.9 Noninfective gastroenteritis and colitis, unspecified (principal); A41.9 Sepsis, unspecified organism; R18.8 Other ascites; J45.909 Unspecified asthma, uncomplicated; Z91.018 Allergy to other foods; Z90.710 Acquired absence of both cervix and uterus
CPT/HCPCS: 36415; 74177; 76705; 80053; 81003; 83605; 83630; 83690; 85025; 87040; 87045; 87046; 87086; 87427; 87449; 93005; 96361; 96365; 96366; 96367; 96375; 96376; G0378; J1110; J1885; J2270; J2405; J2543; J2765; J3490; S0028

== ENCOUNTER 2019-07-03 10:45 | Outpatient (CLI) | payer OTHER ==
--- NOTE | 2019-07-03 11:20 | ULT ---
US Gallbladder RUQ: 07/03/2019 12:00 AM CLINICAL HISTORY: Left lower quadrant abdominal pain. STUDY: Limited right upper quadrant ultrasound of abdomen. COMPARISON: None. FINDINGS: Liver: Size: Normal. Echogenicity: Normal. Contour: Smooth. Mass: None. Bile ducts: No intrahepatic or extrahepatic biliary dilatation. Common bile duct measures 7 mm. Gallbladder: Contracted with apparent gallbladder wall thickening secondary to its contracted state. No shadowing stones. Pancreas: Head, body, and tail appear normal. Right kidney: Mild hydronephrosis Right kidney measuring 11.5 cm in length. IMPRESSION: 1. Mild right hydronephrosis 2. Common bile duct is upper limits of normal in size.
== END 2019-07-03 10:46 | disposition home or self-care (01) ==
LOC: BICULT 10:45
PROVIDERS: ATTEND Internal Medicine Gastroenterology
DX: K62.5 Hemorrhage of anus and rectum (principal); R10.32 Left lower quadrant pain; R10.13 Epigastric pain; N13.30 Unspecified hydronephrosis; Z80.0 Family history of malignant neoplasm of digestive organs
CPT/HCPCS: 76705

== ENCOUNTER 2023-04-15 19:16 | Inpatient (IN) | payer OTHER ==
[~2023-04-15 19:16] MED LIST changes: -Iopamidol 370 76% 100 ML VIAL ONE; +Iopamidol-370 76% 500 ML MDV (1 ML CHARGE) ONE
[2023-04-15] MEDS ORDERED: Ondansetron PF 4 MG/2 ML Vial ONE (20:15)
[2023-04-15 20:39] LABS: Hematocrit 53.6 % (36.0-47.0); Hemoglobin 18.7 g/dL (12.0-16.0); Mean Corpuscular HGB CONC 34.9 g/dL (32.0-36.0); Mean Corpuscular Hemoglobin 30.4 pg (27.0-31.0); Mean Corpuscular Volume 87.2 fl (78.0-98.0); Mean Platelet Volume 8.8 fL (7.4-10.4); Platelet Count 317 10x3/uL (130-400); RBC Distribution Width 12.9 % (11.5-14.5); Red Blood Cell (RBC) Count 6.15 mill/uL (4.20-5.40); White Blood Cell (WBC) Count 27.1 10x3/uL (4.8-10.8)
[2023-04-15 20:48] LABS: Delete Auto Diff?? YES; Manual Diff?? YES
[2023-04-15 20:49] LABS: BHCG - Serum Negative (NEGATIVE); Pregs Control Background? CLEAR/WHITE (CLR/WHITE); Pregs Control Bar Appear? YES (CONTROL BAR)
[2023-04-15 21:11] LABS: ALT (SGPT) 30 U/L (8-55); AST (SGOT) 36 U/L (5-34); Albumin 5.6 g/dL (3.5-5.0); Alkaline Phosphatase 60 U/L (40-110); Anion Gap 23 mmol/L (10-20); BUN (Urea Nitrogen) 20 mg/dL (7.0-18.7); Calc. Creatinine Clearance 0 mL/min (70-130); Calcium 11.1 mg/dL (7.8-10.44); Carbon Dioxide 21 mmol/L (22-29); Chloride 101 mmol/L (98-107); Estimated GFR 36; Glucose 182 mg/dL (70-105); Lipase 21 U/L (8-78); Potassium 4.4 mmol/L (3.5-5.1); Protein, Total 9.6 g/dL (6.0-8.3); Sodium 141 mmol/L (136-145)
[2023-04-15 21:12] LABS: Band 18 % (5-11); CellaVision Operator ID lab.abc; Lymphocytes 1 % (21-51); Monocytes 4 % (0-10); Neutrophil 77 % (42-75); Platelet Adequacy Comment Platelets Normal; RBC Morphology Within Normal Limits; Total Cell Count 103; Toxic Granulation SLIGHT; Vacuoles SLIGHT
[2023-04-15] MEDS ORDERED: Ondansetron PF 4 MG/2 ML Vial IVP PRN (21:33)
[2023-04-15] MEDS ORDERED: Ondansetron ODT 4 MG TAB PO PRN (21:33)
[2023-04-15] MEDS ORDERED: Cefepime 2 GM VIAL ONE (22:00)
[2023-04-15 22:13] LABS: Magnesium 2.1 mg/dL (1.6-2.6)
[2023-04-15 22:39] LABS: Bacteria/HPF None Seen HPF (None Seen); Bilirubin Negative (Negative); Blood, Urine Negative (Negative); CAUTI Indications for Culture < 2yrs of age; Clarity Turbid (Clear); Glucose, Urine (Dipstick) Normal (Negative); Ketone, Urine Trace mg/dL (Negative); Leukocyte Negative Leu/uL (Negative); Nitrite Negative (Negative); Protein, Urine (Dipstick) 50 mg/dL (Neg-Trace); RBC/HPF 0-3 HPF (0-3); Specific Gravity, Urine 1.047 (1.002-1.036); Urobilinogen Normal mg/dL (Less than 2); WBC/HPF 0-3 HPF (0-3); pH, Urine 5.5 (5.0-9.0)
[2023-04-15 22:44] LABS: Urine Culture Reflex Yes Yes
[2023-04-15] MEDS ORDERED: traZODone HCl 50 MG TAB PO PRN (22:54)
[2023-04-15] MEDS ORDERED: metroNIDAZOLE 500 MG in Premix Bag 1 BAG IVPB SCH (23:15)
[2023-04-15 23:27] VITALS: BMI 27.0
[2023-04-16 00:16] LABS: Lactic Acid 4.3 mmol/L (0.5-2.2)
[2023-04-16] MEDS ORDERED: Lactated Ringer's 1,000 ML IV SCH (00:30)
[2023-04-16] MEDS ORDERED: Lactated Ringer's 500 ML IV SCH (00:30)
[2023-04-16] MEDS: Lactated Ringer's 1,000 ML IV SCH ×3 (01:59→20:13)
[2023-04-16] MEDS: metroNIDAZOLE 500 MG in Premix Bag 1 BAG IVPB SCH ×3 (05:17→22:27)
[2023-04-16] MEDS: Acetaminophen 325 MG TAB PO PRN ×2 (05:17→10:09)
[2023-04-16 06:39] LABS: #Basophils 0.1 thou/uL (0.0-0.2); #Monocytes 0.7 thou/uL (0.11-0.59); #Neutrophils 16.6 thou/uL (1.40-6.50); %Basophils 0.3 % (0.0-1.0); %Eosinophils 0.2 % (0.0-10.0); %Monocytes 3.9 % (0.0-10.0); %Neutrophils 93.1 % (42.0-75.0); Mean Corpuscular Hemoglobin 30.2 pg (27.0-31.0); Mean Corpuscular Volume 86.2 fl (78.0-98.0); Platelet Count 222 10x3/uL (130-400); RBC Distribution Width 12.9 % (11.5-14.5); Red Blood Cell (RBC) Count 4.77 mill/uL (4.20-5.40); White Blood Cell (WBC) Count 17.9 10x3/uL (4.8-10.8)
[2023-04-16 06:45] LABS: Hematocrit 41.1 % (36.0-47.0); Hemoglobin 14.4 g/dL (12.0-16.0)
[2023-04-16 07:46] LABS: Anion Gap 14 mmol/L (10-20); BUN (Urea Nitrogen) 16 mg/dL (7.0-18.7); Calc. Creatinine Clearance 92 mL/min (70-130); Calcium 8.5 mg/dL (7.8-10.44); Carbon Dioxide 22 mmol/L (22-29); Chloride 104 mmol/L (98-107); Estimated GFR 88; Glucose 115 mg/dL (70-105); Potassium 3.8 mmol/L (3.5-5.1); Sodium 136 mmol/L (136-145)
[2023-04-16] MEDS ORDERED: Cefepime 1 GM in Sodium Chloride 0.9% 100 ML IVPB SCH (09:00)
[2023-04-16] MEDS ORDERED: Ibuprofen 800 MG TAB PO SCH (11:15)
[2023-04-16 17:06] LABS: Campy jejuni + coli by PCR Negative (Negative); STEC Shiga Toxin 1+2 Negative (Negative); Salmonella spp. by PCR Negative (Negative); Shigella spp + EIEC by PCR Negative (Negative)
[2023-04-16] MEDS: Cefepime 2 GM in Sodium Chloride 0.9% 100 ML IVPB SCH (20:13)
[2023-04-16] MEDS ORDERED: Ketorolac Tromethamine 30 MG/ML VIAL IVP SCH (20:30)
[2023-04-17] MEDS: Lactated Ringer's 1,000 ML IV SCH ×2 (01:15→08:20)
[2023-04-17] MEDS: metroNIDAZOLE 500 MG in Premix Bag 1 BAG IVPB SCH (05:24)
[2023-04-17 06:31] LABS: #Eosinphils 0.3 thou/uL (0.0-0.7); #Monocytes 0.7 thou/uL (0.11-0.59); #Neutrophils 5.3 thou/uL (1.40-6.50); %Basophils 0.5 % (0.0-1.0); %Eosinophils 3.4 % (0.0-10.0); %Lymphocytes 14.6 % (21.0-51.0); %Monocytes 9.4 % (0.0-10.0); %Neutrophils 71.7 % (42.0-75.0); Hematocrit 38.8 % (36.0-47.0); Hemoglobin 13.3 g/dL (12.0-16.0); Mean Corpuscular HGB CONC 34.3 g/dL (32.0-36.0); Mean Corpuscular Hemoglobin 30.5 pg (27.0-31.0); Mean Platelet Volume 8.8 fL (7.4-10.4); Platelet Count 171 10x3/uL (130-400); Red Blood Cell (RBC) Count 4.36 mill/uL (4.20-5.40); White Blood Cell (WBC) Count 7.4 10x3/uL (4.8-10.8)
[2023-04-17 06:57] LABS: Anion Gap 7 mmol/L (10-20); BUN (Urea Nitrogen) 9 mg/dL (7.0-18.7); Calc. Creatinine Clearance 100 mL/min (70-130); Calcium 8.3 mg/dL (7.8-10.44); Carbon Dioxide 27 mmol/L (22-29); Chloride 109 mmol/L (98-107); Estimated GFR 96; Glucose 84 mg/dL (70-105); Potassium 3.6 mmol/L (3.5-5.1); Sodium 139 mmol/L (136-145)
[2023-04-17] MEDS: Cefepime 2 GM in Sodium Chloride 0.9% 100 ML IVPB SCH (08:19)
[2023-04-17] MEDS: Acetaminophen 325 MG TAB PO PRN (08:19)
[2023-04-17] MEDS ORDERED: Dicyclomine 10 MG CAP PO SCH (09:00)
[2023-04-17 11:24] VITALS: BP 125/83; TEMP 97.7
== END 2023-04-17 12:25 | disposition home or self-care (01) | DRG 872 ==
LOC: SJX 19:16 → T4-A 21:47 → OBSVTOIN 04-16 13:16
PROVIDERS: ADMIT Internal Medicine; ATTEND Internal Medicine
DX: A41.9 Sepsis, unspecified organism (principal); A09 Infectious gastroenteritis and colitis, unspecified; N17.9 Acute kidney failure, unspecified; E87.20 Acidosis, unspecified; Z91.018 Allergy to other foods; Z79.899 Other long term (current) drug therapy; J45.909 Unspecified asthma, uncomplicated; E86.0 Dehydration; Z90.710 Acquired absence of both cervix and uterus; Z87.891 Personal history of nicotine dependence; R65.20 Severe sepsis without septic shock
CPT/HCPCS: 36415; 74177; 80048; 80053; 81001; 82010; 83605; 83690; 83735; 84703; 85025; 87040; 87086; 87149; 87324; 87449; 87505; 96361; 96365; 96375; 96376; G0378; J0692; J1885; J2405; J3490; J7120; Q9967

== ENCOUNTER 2023-09-26 10:37 | Emergency (ER) | payer OTHER ==
[2023-09-26 11:34] LABS: #Basophils 0.1 thou/uL (0.0-0.2); #Eosinphils 0.2 thou/uL (0.0-0.7); #Monocytes 0.5 thou/uL (0.11-0.59); #Neutrophils 4.4 thou/uL (1.40-6.50); %Basophils 0.7 % (0.0-1.0); %Eosinophils 3.4 % (0.0-10.0); %Lymphocytes 24.8 % (21.0-51.0); %Monocytes 6.7 % (0.0-10.0); %Neutrophils 64.1 % (42.0-75.0); Hematocrit 45.2 % (36.0-47.0); Hemoglobin 15.2 g/dL (12.0-16.0); Mean Corpuscular HGB CONC 33.6 g/dL (32.0-36.0); Mean Corpuscular Hemoglobin 29.9 pg (27.0-31.0); Mean Platelet Volume 8.8 fL (7.4-10.4); Platelet Count 242 10x3/uL (130-400); RBC Distribution Width 13.3 % (11.5-14.5); Red Blood Cell (RBC) Count 5.08 mill/uL (4.20-5.40); White Blood Cell (WBC) Count 6.9 10x3/uL (4.8-10.8)
[2023-09-26 12:11] LABS: ALT (SGPT) 20 U/L (8-55); AST (SGOT) 25 U/L (5-34); Albumin 3.8 g/dL (3.5-5.0); Alkaline Phosphatase 39 U/L (40-110); Anion Gap 11 mmol/L (10-20); BUN (Urea Nitrogen) 12 mg/dL (7.0-18.7); Bilirubin, Total 0.6 mg/dL (0.2-1.2); Calc. Creatinine Clearance 0 mL/min (70-130); Calcium 8.9 mg/dL (7.8-10.44); Carbon Dioxide 23 mmol/L (22-29); Chloride 108 mmol/L (98-107); Estimated GFR 96; Glucose 92 mg/dL (70-105); Magnesium 2.1 mg/dL (1.6-2.6); Potassium 4.7 mmol/L (3.5-5.1); Protein, Total 6.8 g/dL (6.0-8.3); Sodium 137 mmol/L (136-145)
[2023-09-26 12:16] LABS: Bacteria/HPF None Seen HPF (None Seen); Bilirubin Negative (Negative); Blood, Urine Negative (Negative); CAUTI Indications for Culture Pelvic or flank pain; Clarity Clear (Clear); Glucose, Urine (Dipstick) Normal (Negative); Ketone, Urine Negative (Negative); Leukocyte Negative Leu/uL (Negative); Nitrite Negative (Negative); Protein, Urine (Dipstick) Negative (Neg-Trace); RBC/HPF 0-3 HPF (0-3); Specific Gravity, Urine 1.026 (1.002-1.036); Squamous Epithelial 0-3 HPF (0-3); Urobilinogen Normal mg/dL (Less than 2); WBC/HPF 0-3 HPF (0-3); pH, Urine 7.5 (5.0-9.0)
[2023-09-26 12:21] LABS: Urine Culture Reflex No No
== END 2023-09-26 14:00 | disposition home or self-care (01) ==
LOC: ERS 10:37
DX: N83.202 Unspecified ovarian cyst, left side (principal); N83.201 Unspecified ovarian cyst, right side; J45.909 Unspecified asthma, uncomplicated; Z55.6 Problems related to health literacy; Z79.899 Other long term (current) drug therapy
CPT/HCPCS: 74177; 80053; 81001; 83735; 85025